=== PATIENT | male | born 1985 | race Caucasian/White ===

== ENCOUNTER 2017-05-14 13:48 | Day surgery (SDC) | payer OTHER ==
[2017-05-14] MEDS ORDERED: PROPOFOL 20 ML (15:20)
== END 2017-05-14 17:54 | disposition home or self-care (01) ==
LOC: GIL 13:48
DX: K20.8 Other esophagitis (principal); K29.60 Other gastritis without bleeding; I10 Essential (primary) hypertension; I25.2 Old myocardial infarction; Z86.73 Personal history of transient ischemic attack (TIA), and cerebral infarction without residual deficits; F17.200 Nicotine dependence, unspecified, uncomplicated; E11.9 Type 2 diabetes mellitus without complications
CPT/HCPCS: 43239; 82962; 88305; 88312; 88313

== ENCOUNTER 2018-01-18 19:31 | Inpatient (IN) | payer OTHER ==
[2018-01-18] MEDS ORDERED: ACETAMINOPHEN 325 MG TAB PO (21:30)
[2018-01-18] MEDS ORDERED: CEFEPIME 1GM/50 ML (PMX) 50 ML IVPB (21:30)
[2018-01-18] MEDS ORDERED: VANCOMYCIN IV PER PHARMACY XX (21:30)
[2018-01-18] MEDS: ATORVASTATIN 80 MG TAB PO (22:41)
[2018-01-18] MEDS: morphine 2 MG INJ IV (22:41)
[2018-01-18] MEDS: FLUOXETINE 20 MG CAP PO (22:42)
[2018-01-18] MEDS: INSULIN GLARGINE [LANTus] (100 UNITS/ML) SYG SC (22:44)
[2018-01-18] MEDS ORDERED: GLUCAGON 1 MG INJ IM (23:00)
[2018-01-18] MEDS ORDERED: GLUCOSE GEL 15 GRAM TUBE PO ×2 (23:00)
[2018-01-18] MEDS ORDERED: GLUCOSE GEL 15 GRAM TUBE BUCCAL (23:00)
[2018-01-18] MEDS ORDERED: DEXTROSE 50% 50 ML SYRINGE IV (23:00)
[2018-01-18] MEDS: AZTREONAM 1 GM/NS (PMX) 50 ML IVPB (23:07)
[2018-01-18] MEDS: GABAPENTIN 300 MG CAP PO (23:07)
[2018-01-18] MEDS: DIVALPROEX (ER) 500 MG TAB PO (23:07)
[2018-01-19] MEDS: ACCU-CHEK XX ×2 (01:48→20:35)
[2018-01-19 05:23] LABS: ADD MAN DIFF? NO
[2018-01-19 05:25] LABS: BASOPHIL # 0.1 10^3/ul (0.0-0.1); BASOPHILS % 0.5 % (0.0-2.0); EOSINOPHILS # 0.3 10^3/ul (0.0-0.5); EOSINOPHILS % 2.5 % (0.0-7.0); HEMATOCRIT 38.7 % (42.0-52.0); HEMOGLOBIN 13.2 g/dl (14.0-18.0); LYMPHOCYTES % 26.9 % (15.0-51.0); MEAN CORPUSCULAR HEMOGLOBIN 31.1 pg (29.0-33.0); MEAN CORPUSCULAR HGB CONC 34.1 g/dl (32.0-37.0); MEAN CORPUSCULAR VOLUME 91.3 fl (82.0-101.0); MEAN PLATELET VOLUME 9.5 fl (7.4-10.4); MONOCYTE # 0.9 10^3/ul (0.3-0.9); MONOCYTES % 8.1 % (0.0-11.0); NEUTROPHIL # 6.8 10^3/ul (1.6-7.5); NEUTROPHILS % 61.6 % (39.0-77.0); PLATELET COUNT 309 10^3/UL (140-415); RED BLOOD COUNT 4.24 10^6/ul (4.70-6.10); RED CELL DISTRIBUTION WIDTH 11.9 % (11.5-14.5)
[2018-01-19 05:52] LABS: ANION GAP 9 (5-13); BLOOD UREA NITROGEN 14 mg/dl (7-20); CALCIUM 8.7 mg/dl (8.4-10.2); CARBON DIOXIDE 30 mmol/L (21-31); CHLORIDE 103 mmol/L (97-110); Estimated GFR > 60 mL/min (>60); GLUCOSE 56 mg/dl (70-220); POTASSIUM 4.2 mmol/L (3.5-5.1); SODIUM 142 mmol/L (135-144)
[2018-01-19] MEDS: AZTREONAM 1 GM/NS (PMX) 50 ML IVPB ×3 (05:54→22:30)
[2018-01-19] MEDS: PANTOPRAZOLE 40 MG INJ IV (05:54)
[2018-01-19] MEDS: INSULIN ASPART [NOVOLOG] 3 ML PEN SC ×4 (07:59→20:31)
[2018-01-19] MEDS: VANCOMYCIN 1 GM 250 ML IVPB ×3 (08:05→15:56)
[2018-01-19] MEDS: INSULIN GLARGINE [LANTus] (100 UNITS/ML) SYG SC ×2 (08:10→20:33)
[2018-01-19] MEDS: morphine 2 MG INJ IV ×4 (08:12→22:47)
[2018-01-19] MEDS: FLUOXETINE 20 MG CAP PO ×2 (08:50→20:35)
[2018-01-19] MEDS: ASPIRIN (EC) 81 MG TAB PO (08:51)
[2018-01-19] MEDS: NICOTINE (14 MG/24 HR) PATCH TRANSDERM (08:51)
[2018-01-19] MEDS: GABAPENTIN 300 MG CAP PO ×3 (08:51→20:34)
[2018-01-19] MEDS: LISINOPRIL 5 MG TAB PO (08:51)
[2018-01-19] MEDS: COLLAGENASE 5 GM (UD JAR) TOP (12:01)
[2018-01-19] MEDS: ATORVASTATIN 80 MG TAB PO (20:33)
[2018-01-19] MEDS: DIVALPROEX (ER) 500 MG TAB PO (20:33)
[2018-01-19 23:46] LABS: VANCOMYCIN,TROUGH 9.8 ug/ml (10.0-20.0)
[2018-01-20] MEDS: VANCOMYCIN 1.25 GM in SOD CHLORIDE 0.9% 250 ML IVPB ×3 (00:45→16:11)
[2018-01-20] MEDS: HYDROCODONE/APAP (7.5/325) TAB PO (02:09)
[2018-01-20] MEDS: morphine 2 MG INJ IV ×5 (04:17→20:45)
[2018-01-20] MEDS: PANTOPRAZOLE 40 MG INJ IV (05:04)
[2018-01-20] MEDS: AZTREONAM 1 GM/NS (PMX) 50 ML IVPB ×3 (05:04→20:45)
[2018-01-20 06:03] LABS: ADD MAN DIFF? NO
[2018-01-20 06:07] LABS: BASOPHIL # 0.1 10^3/ul (0.0-0.1); BASOPHILS % 0.5 % (0.0-2.0); EOSINOPHILS # 0.3 10^3/ul (0.0-0.5); EOSINOPHILS % 2.9 % (0.0-7.0); HEMATOCRIT 39.6 % (42.0-52.0); HEMOGLOBIN 13.5 g/dl (14.0-18.0); LYMPHOCYTES # 2.8 10^3/ul (0.8-2.9); LYMPHOCYTES % 29.6 % (15.0-51.0); MEAN CORPUSCULAR HEMOGLOBIN 30.9 pg (29.0-33.0); MEAN CORPUSCULAR HGB CONC 34.1 g/dl (32.0-37.0); MEAN CORPUSCULAR VOLUME 90.6 fl (82.0-101.0); MEAN PLATELET VOLUME 9.7 fl (7.4-10.4); MONOCYTE # 0.7 10^3/ul (0.3-0.9); MONOCYTES % 7.7 % (0.0-11.0); NEUTROPHIL # 5.5 10^3/ul (1.6-7.5); PLATELET COUNT 331 10^3/UL (140-415); RED BLOOD COUNT 4.37 10^6/ul (4.70-6.10); RED CELL DISTRIBUTION WIDTH 11.9 % (11.5-14.5)
[2018-01-20 06:07] LABS: WHITE BLOOD COUNT 9.3 10^3/ul (4.8-10.8)
[2018-01-20 06:53] LABS: ANION GAP 10 (5-13); BLOOD UREA NITROGEN 13 mg/dl (7-20); CALCIUM 9.4 mg/dl (8.4-10.2); CARBON DIOXIDE 32 mmol/L (21-31); CHLORIDE 100 mmol/L (97-110); CREATININE 0.55 mg/dl (0.61-1.24); Estimated GFR > 60 mL/min (>60); GLUCOSE 79 mg/dl (70-220); POTASSIUM 3.9 mmol/L (3.5-5.1); SODIUM 142 mmol/L (135-144)
[2018-01-20 07:07] LABS: MAGNESIUM 1.9 mg/dl (1.7-2.5)
[2018-01-20 07:07] LABS: PHOSPHORUS 5.4 mg/dl (2.5-4.9)
[2018-01-20] MEDS: INSULIN ASPART [NOVOLOG] 3 ML PEN SC ×4 (08:00→20:39)
[2018-01-20] MEDS: INSULIN GLARGINE [LANTus] (100 UNITS/ML) SYG SC ×2 (08:19→20:00)
[2018-01-20] MEDS: FLUOXETINE 20 MG CAP PO ×2 (08:26→20:39)
[2018-01-20] MEDS: GABAPENTIN 300 MG CAP PO ×3 (08:26→20:39)
[2018-01-20] MEDS: ASPIRIN (EC) 81 MG TAB PO (08:26)
[2018-01-20] MEDS: NICOTINE (14 MG/24 HR) PATCH TRANSDERM (08:27)
[2018-01-20] MEDS: LISINOPRIL 5 MG TAB PO (09:16)
[2018-01-20] MEDS: COLLAGENASE 5 GM (UD JAR) TOP (09:17)
[2018-01-20] MEDS: DEXTROSE 50% 50 ML SYRINGE IV ×3 (12:31→17:15)
[2018-01-20] MEDS: DEXTROSE 5%-0.45% NACL 1,000 ML IV (13:36)
[2018-01-20] MEDS: DEXTROSE 10% 1,000 ML IV (16:11)
[2018-01-20] MEDS: DIVALPROEX (ER) 500 MG TAB PO (20:39)
[2018-01-20] MEDS: ATORVASTATIN 80 MG TAB PO (20:39)
[2018-01-21] MEDS: VANCOMYCIN 1.25 GM in SOD CHLORIDE 0.9% 250 ML IVPB ×3 (00:20→17:50)
[2018-01-21] MEDS: morphine 2 MG INJ IV ×5 (01:52→19:44)
[2018-01-21] MEDS: ACCU-CHEK XX (02:00)
[2018-01-21] MEDS: PANTOPRAZOLE 40 MG INJ IV (05:58)
[2018-01-21] MEDS: AZTREONAM 1 GM/NS (PMX) 50 ML IVPB ×3 (05:58→21:35)
[2018-01-21 08:11] LABS: ADD MAN DIFF? NO
[2018-01-21 08:20] LABS: BASOPHILS % 0.5 % (0.0-2.0); EOSINOPHILS # 0.3 10^3/ul (0.0-0.5); EOSINOPHILS % 3.8 % (0.0-7.0); HEMATOCRIT 38.7 % (42.0-52.0); HEMOGLOBIN 12.9 g/dl (14.0-18.0); LYMPHOCYTES # 2.6 10^3/ul (0.8-2.9); LYMPHOCYTES % 34.3 % (15.0-51.0); MEAN CORPUSCULAR HEMOGLOBIN 30.5 pg (29.0-33.0); MEAN CORPUSCULAR HGB CONC 33.3 g/dl (32.0-37.0); MEAN CORPUSCULAR VOLUME 91.5 fl (82.0-101.0); MEAN PLATELET VOLUME 9.7 fl (7.4-10.4); MONOCYTE # 0.6 10^3/ul (0.3-0.9); MONOCYTES % 8.2 % (0.0-11.0); NEUTROPHILS % 52.5 % (39.0-77.0); PLATELET COUNT 314 10^3/UL (140-415); RED BLOOD COUNT 4.23 10^6/ul (4.70-6.10); RED CELL DISTRIBUTION WIDTH 11.9 % (11.5-14.5)
[2018-01-21 08:20] LABS: WHITE BLOOD COUNT 7.7 10^3/ul (4.8-10.8)
[2018-01-21] MEDS: ASPIRIN (EC) 81 MG TAB PO (08:34)
[2018-01-21] MEDS: GABAPENTIN 300 MG CAP PO ×3 (08:34→20:21)
[2018-01-21] MEDS: FLUOXETINE 20 MG CAP PO ×2 (08:36→20:20)
[2018-01-21] MEDS: LISINOPRIL 5 MG TAB PO (08:36)
[2018-01-21] MEDS: COLLAGENASE 5 GM (UD JAR) TOP (08:37)
[2018-01-21 08:42] LABS: ANION GAP 12 (5-13); BLOOD UREA NITROGEN 14 mg/dl (7-20); CALCIUM 9.1 mg/dl (8.4-10.2); CARBON DIOXIDE 29 mmol/L (21-31); CHLORIDE 100 mmol/L (97-110); CREATININE 0.54 mg/dl (0.61-1.24); Estimated GFR > 60 mL/min (>60); GLUCOSE 159 mg/dl (70-220); POTASSIUM 4.4 mmol/L (3.5-5.1); SODIUM 141 mmol/L (135-144)
[2018-01-21 08:48] LABS: MAGNESIUM 1.9 mg/dl (1.7-2.5)
[2018-01-21 08:54] LABS: VANCOMYCIN,TROUGH 13.4 ug/ml (10.0-20.0)
[2018-01-21] MEDS: INSULIN GLARGINE [LANTus] (100 UNITS/ML) SYG SC ×2 (09:28→20:22)
[2018-01-21] MEDS: INSULIN ASPART [NOVOLOG] 3 ML PEN SC ×4 (09:28→21:00)
[2018-01-21] MEDS: NICOTINE (14 MG/24 HR) PATCH TRANSDERM (09:29)
[2018-01-21] MEDS: DEXTROSE 10% 1,000 ML IV (12:30)
[2018-01-21] MEDS: DIVALPROEX (ER) 500 MG TAB PO (20:20)
[2018-01-21] MEDS: ATORVASTATIN 80 MG TAB PO (20:20)
[2018-01-22] MEDS: VANCOMYCIN 1.25 GM in SOD CHLORIDE 0.9% 250 ML IVPB ×3 (01:56→18:55)
[2018-01-22] MEDS: ACCU-CHEK XX (01:57)
[2018-01-22] MEDS: morphine 2 MG INJ IV ×4 (04:41→18:44)
[2018-01-22] MEDS: AZTREONAM 1 GM/NS (PMX) 50 ML IVPB ×3 (05:35→22:00)
[2018-01-22] MEDS: PANTOPRAZOLE 40 MG INJ IV (05:35)
[2018-01-22] MEDS: INSULIN ASPART [NOVOLOG] 3 ML PEN SC ×5 (07:54→20:22)
[2018-01-22] MEDS: FLUOXETINE 20 MG CAP PO ×2 (08:07→20:42)
[2018-01-22] MEDS: LISINOPRIL 5 MG TAB PO (08:08)
[2018-01-22] MEDS: GABAPENTIN 300 MG CAP PO ×3 (08:08→20:23)
[2018-01-22] MEDS: ASPIRIN (EC) 81 MG TAB PO (08:08)
[2018-01-22] MEDS: COLLAGENASE 5 GM (UD JAR) TOP (08:08)
[2018-01-22] MEDS: INSULIN GLARGINE [LANTus] (100 UNITS/ML) SYG SC ×2 (08:12→20:32)
[2018-01-22] MEDS: NICOTINE (14 MG/24 HR) PATCH TRANSDERM (10:37)
[2018-01-22] MEDS: ATORVASTATIN 80 MG TAB PO (20:23)
[2018-01-22] MEDS: DIVALPROEX (ER) 500 MG TAB PO (20:43)
[2018-01-22] MEDS: HYDROCODONE/APAP (7.5/325) TAB PO (21:33)
[2018-01-23] MEDS: morphine 2 MG INJ IV ×6 (00:01→23:57)
[2018-01-23] MEDS: HYDROCODONE/APAP (7.5/325) TAB PO ×3 (01:55→17:34)
[2018-01-23] MEDS: VANCOMYCIN 1.25 GM in SOD CHLORIDE 0.9% 250 ML IVPB ×3 (01:55→18:16)
[2018-01-23] MEDS: ACCU-CHEK XX (02:00)
[2018-01-23 05:37] LABS: ADD MAN DIFF? NO
[2018-01-23 05:41] LABS: WHITE BLOOD COUNT 7.5 10^3/ul (4.8-10.8)
[2018-01-23 05:41] LABS: BASOPHIL # 0.1 10^3/ul (0.0-0.1); BASOPHILS % 0.7 % (0.0-2.0); EOSINOPHILS # 0.3 10^3/ul (0.0-0.5); EOSINOPHILS % 3.4 % (0.0-7.0); HEMOGLOBIN 11.9 g/dl (14.0-18.0); LYMPHOCYTES # 3.1 10^3/ul (0.8-2.9); LYMPHOCYTES % 41.2 % (15.0-51.0); MEAN CORPUSCULAR HEMOGLOBIN 30.7 pg (29.0-33.0); MEAN CORPUSCULAR VOLUME 90.2 fl (82.0-101.0); MEAN PLATELET VOLUME 9.6 fl (7.4-10.4); MONOCYTE # 0.7 10^3/ul (0.3-0.9); NEUTROPHIL # 3.4 10^3/ul (1.6-7.5); PLATELET COUNT 300 10^3/UL (140-415); RED BLOOD COUNT 3.88 10^6/ul (4.70-6.10); RED CELL DISTRIBUTION WIDTH 11.8 % (11.5-14.5)
[2018-01-23 06:00] LABS: ANION GAP 8 (5-13); BLOOD UREA NITROGEN 19 mg/dl (7-20); CALCIUM 9.2 mg/dl (8.4-10.2); CARBON DIOXIDE 33 mmol/L (21-31); CHLORIDE 100 mmol/L (97-110); CREATININE 0.56 mg/dl (0.61-1.24); Estimated GFR > 60 mL/min (>60); GLUCOSE 57 mg/dl (70-220); POTASSIUM 3.8 mmol/L (3.5-5.1); SODIUM 141 mmol/L (135-144)
[2018-01-23 06:00] LABS: HEMOGLOBIN A1C 9.5 % (0-5.9)
[2018-01-23] MEDS: PANTOPRAZOLE 40 MG INJ IV (06:33)
[2018-01-23] MEDS: AZTREONAM 1 GM/NS (PMX) 50 ML IVPB ×4 (06:39→21:56)
[2018-01-23] MEDS: INSULIN ASPART [NOVOLOG] 3 ML PEN SC ×4 (08:00→20:34)
[2018-01-23] MEDS: INSULIN GLARGINE [LANTus] (100 UNITS/ML) SYG SC ×2 (08:00→19:51)
[2018-01-23] MEDS: ASPIRIN (EC) 81 MG TAB PO (08:38)
[2018-01-23] MEDS: FLUOXETINE 20 MG CAP PO ×2 (08:38→20:32)
[2018-01-23] MEDS: GABAPENTIN 300 MG CAP PO ×3 (08:38→20:32)
[2018-01-23] MEDS: COLLAGENASE 5 GM (UD JAR) TOP (08:39)
[2018-01-23] MEDS: NICOTINE (14 MG/24 HR) PATCH TRANSDERM (09:52)
[2018-01-23] MEDS: LISINOPRIL 5 MG TAB PO (09:57)
[2018-01-23] MEDS: DIVALPROEX (ER) 500 MG TAB PO (20:32)
[2018-01-23] MEDS: ATORVASTATIN 80 MG TAB PO (20:32)
[2018-01-23] MEDS: DEXTROSE 5%-0.45% NACL 1,000 ML IV (23:54)
[2018-01-24] MEDS: INSULIN ASPART [NOVOLOG] 3 ML PEN SC ×6 (01:06→20:30)
[2018-01-24] MEDS: ACCU-CHEK XX (01:12)
[2018-01-24] MEDS: VANCOMYCIN 1.25 GM in SOD CHLORIDE 0.9% 250 ML IVPB ×4 (01:23→20:09)
[2018-01-24] MEDS: morphine 2 MG INJ IV ×3 (04:44→14:59)
[2018-01-24] MEDS: PANTOPRAZOLE 40 MG INJ IV (05:28)
[2018-01-24] MEDS: AZTREONAM 1 GM/NS (PMX) 50 ML IVPB ×3 (05:28→23:43)
[2018-01-24 06:32] LABS: CREATININE 0.54 mg/dl (0.61-1.24)
[2018-01-24 06:32] LABS: BLOOD UREA NITROGEN 18 mg/dl (7-20)
[2018-01-24] MEDS: INSULIN GLARGINE [LANTus] (100 UNITS/ML) SYG SC ×3 (08:00→20:34)
[2018-01-24] MEDS: ASPIRIN (EC) 81 MG TAB PO (09:00)
[2018-01-24] MEDS: GABAPENTIN 300 MG CAP PO ×3 (09:00→20:26)
[2018-01-24] MEDS: COLLAGENASE 5 GM (UD JAR) TOP ×2 (09:00→15:49)
[2018-01-24] MEDS: LISINOPRIL 5 MG TAB PO (09:00)
[2018-01-24] MEDS: FLUOXETINE 20 MG CAP PO ×2 (09:00→20:26)
[2018-01-24] MEDS: NICOTINE (14 MG/24 HR) PATCH TRANSDERM (09:09)
[2018-01-24 09:42] LABS: VANCOMYCIN,TROUGH 16.6 ug/ml (10.0-20.0)
[2018-01-24] MEDS: ONDANSETRON 4 MG INJ IV (15:02)
[2018-01-24] MEDS ORDERED: ONDANSETRON 4 MG INJ (17:48)
[2018-01-24] MEDS ORDERED: FENTAnyl 50 MCG/ML VIAL (17:48)
[2018-01-24] MEDS ORDERED: ROPIVACAINE 0.2% 20 ML VIAL (17:48)
[2018-01-24] MEDS ORDERED: METOCLOPRAMIDE 10 MG INJ (17:48)
[2018-01-24] MEDS ORDERED: PROPOFOL 20 ML (17:48)
[2018-01-24] MEDS ORDERED: MIDAZOLAM 1 MG/ML 2 ML INJ (17:48)
[2018-01-24] MEDS ORDERED: EPHEDrine SULFATE 50 MG/5 ML SYG (18:07)
[2018-01-24] MEDS: DIVALPROEX (ER) 500 MG TAB PO (20:25)
[2018-01-24] MEDS: ATORVASTATIN 80 MG TAB PO (20:26)
[2018-01-24 21:35] LABS: ADD MAN DIFF? NO
[2018-01-24 21:38] LABS: WHITE BLOOD COUNT 7.6 10^3/ul (4.8-10.8)
[2018-01-24 21:38] LABS: BASOPHIL # 0.1 10^3/ul (0.0-0.1); BASOPHILS % 1.1 % (0.0-2.0); EOSINOPHILS # 0.2 10^3/ul (0.0-0.5); HEMATOCRIT 35.9 % (42.0-52.0); HEMOGLOBIN 12.2 g/dl (14.0-18.0); LYMPHOCYTES # 2.7 10^3/ul (0.8-2.9); LYMPHOCYTES % 34.9 % (15.0-51.0); MEAN CORPUSCULAR HEMOGLOBIN 31.1 pg (29.0-33.0); MEAN CORPUSCULAR VOLUME 91.6 fl (82.0-101.0); MONOCYTE # 0.5 10^3/ul (0.3-0.9); MONOCYTES % 6.2 % (0.0-11.0); NEUTROPHIL # 4.1 10^3/ul (1.6-7.5); NEUTROPHILS % 54.3 % (39.0-77.0); PLATELET COUNT 259 10^3/UL (140-415); RED BLOOD COUNT 3.92 10^6/ul (4.70-6.10)
[2018-01-25] MEDS: VANCOMYCIN 1.25 GM in SOD CHLORIDE 0.9% 250 ML IVPB ×3 (01:59→17:30)
[2018-01-25] MEDS: ACCU-CHEK XX (02:00)
[2018-01-25] MEDS: morphine 2 MG INJ IV ×5 (02:26→21:02)
[2018-01-25] MEDS: AZTREONAM 1 GM/NS (PMX) 50 ML IVPB ×3 (05:51→23:12)
[2018-01-25] MEDS: PANTOPRAZOLE 40 MG INJ IV (05:55)
[2018-01-25] MEDS ORDERED: INSULIN ASPART [NOVOLOG] 3 ML PEN SC (07:00)
[2018-01-25] MEDS: FLUOXETINE 20 MG CAP PO ×2 (08:23→20:55)
[2018-01-25] MEDS: GABAPENTIN 300 MG CAP PO ×3 (08:23→20:55)
[2018-01-25] MEDS: ASPIRIN (EC) 81 MG TAB PO (08:23)
[2018-01-25] MEDS: LISINOPRIL 5 MG TAB PO (08:23)
[2018-01-25] MEDS: NICOTINE (14 MG/24 HR) PATCH TRANSDERM (08:26)
[2018-01-25] MEDS: Insulin NOVOLOG SS MILD Algorithm (SS with meals and bedtime) SC ×4 (08:26→21:05)
[2018-01-25] MEDS: COLLAGENASE 5 GM (UD JAR) TOP (09:00)
[2018-01-25] MEDS: ENOXAPARIN 40 MG/0.4 ML SYG SC (16:51)
[2018-01-25] MEDS: ATORVASTATIN 80 MG TAB PO (20:55)
[2018-01-25] MEDS: DIVALPROEX (ER) 500 MG TAB PO (20:56)
[2018-01-25] MEDS: INSULIN GLARGINE [LANTus] (100 UNITS/ML) SYG SC (21:22)
[2018-01-26] MEDS: morphine 2 MG INJ IV ×6 (01:31→21:32)
[2018-01-26] MEDS: VANCOMYCIN 1.25 GM in SOD CHLORIDE 0.9% 250 ML IVPB ×2 (01:34→11:49)
[2018-01-26] MEDS: ACCU-CHEK XX (01:46)
[2018-01-26] MEDS: AZTREONAM 1 GM/NS (PMX) 50 ML IVPB ×3 (05:15→21:31)
[2018-01-26] MEDS: PANTOPRAZOLE (EC) 40 MG TAB PO (05:15)
[2018-01-26] MEDS: NICOTINE (14 MG/24 HR) PATCH TRANSDERM (08:07)
[2018-01-26] MEDS: FLUOXETINE 20 MG CAP PO ×2 (08:07→20:32)
[2018-01-26] MEDS: ASPIRIN (EC) 81 MG TAB PO (08:08)
[2018-01-26] MEDS: LISINOPRIL 5 MG TAB PO (08:08)
[2018-01-26] MEDS: GABAPENTIN 300 MG CAP PO ×3 (08:08→20:32)
[2018-01-26] MEDS: INSULIN GLARGINE [LANTus] (100 UNITS/ML) SYG SC ×2 (08:15→20:34)
[2018-01-26] MEDS: ENOXAPARIN 40 MG/0.4 ML SYG SC (08:15)
[2018-01-26] MEDS: Insulin NOVOLOG SS MILD Algorithm (SS with meals and bedtime) SC ×4 (08:22→20:32)
[2018-01-26 08:43] LABS: ADD MAN DIFF? NO
[2018-01-26 08:47] LABS: BASOPHIL # 0.1 10^3/ul (0.0-0.1); BASOPHILS % 1.4 % (0.0-2.0); EOSINOPHILS # 0.2 10^3/ul (0.0-0.5); HEMATOCRIT 35.8 % (42.0-52.0); HEMOGLOBIN 12.3 g/dl (14.0-18.0); LYMPHOCYTES # 2.6 10^3/ul (0.8-2.9); LYMPHOCYTES % 39.9 % (15.0-51.0); MEAN CORPUSCULAR HEMOGLOBIN 31.2 pg (29.0-33.0); MEAN CORPUSCULAR HGB CONC 34.4 g/dl (32.0-37.0); MEAN CORPUSCULAR VOLUME 90.9 fl (82.0-101.0); MEAN PLATELET VOLUME 9.6 fl (7.4-10.4); MONOCYTE # 0.6 10^3/ul (0.3-0.9); MONOCYTES % 9.1 % (0.0-11.0); NEUTROPHIL # 3.1 10^3/ul (1.6-7.5); NEUTROPHILS % 46.3 % (39.0-77.0); PLATELET COUNT 300 10^3/UL (140-415); RED BLOOD COUNT 3.94 10^6/ul (4.70-6.10); RED CELL DISTRIBUTION WIDTH 11.9 % (11.5-14.5)
[2018-01-26 08:47] LABS: WHITE BLOOD COUNT 6.6 10^3/ul (4.8-10.8)
[2018-01-26 09:06] LABS: PHOSPHORUS 4.4 mg/dl (2.5-4.9)
[2018-01-26 09:06] LABS: ANION GAP 10 (5-13); BLOOD UREA NITROGEN 20 mg/dl (7-20); CARBON DIOXIDE 28 mmol/L (21-31); CHLORIDE 104 mmol/L (97-110); CREATININE 0.58 mg/dl (0.61-1.24); Estimated GFR > 60 mL/min (>60); GLUCOSE 69 mg/dl (70-220); MAGNESIUM 1.7 mg/dl (1.7-2.5); POTASSIUM 3.9 mmol/L (3.5-5.1); SODIUM 142 mmol/L (135-144)
[2018-01-26] MEDS: COLLAGENASE 5 GM (UD JAR) TOP (12:11)
[2018-01-26] MEDS: VANCOMYCIN 1 GM 250 ML IVPB (18:34)
[2018-01-26] MEDS: DIVALPROEX (ER) 500 MG TAB PO (20:32)
[2018-01-26] MEDS: ATORVASTATIN 80 MG TAB PO (20:32)
[2018-01-27] MEDS: morphine 2 MG INJ IV ×5 (01:37→20:09)
[2018-01-27] MEDS: VANCOMYCIN 1 GM 250 ML IVPB ×3 (01:39→17:30)
[2018-01-27] MEDS: ACCU-CHEK XX (02:00)
[2018-01-27] MEDS: AZTREONAM 1 GM/NS (PMX) 50 ML IVPB (05:37)
[2018-01-27] MEDS: PANTOPRAZOLE (EC) 40 MG TAB PO (05:42)
[2018-01-27] MEDS: Insulin NOVOLOG SS MILD Algorithm (SS with meals and bedtime) SC ×4 (07:00→21:00)
[2018-01-27] MEDS: HYDROCODONE/APAP (7.5/325) TAB PO (07:35)
[2018-01-27] MEDS: INSULIN GLARGINE [LANTus] (100 UNITS/ML) SYG SC ×3 (08:00→21:25)
[2018-01-27] MEDS: ENOXAPARIN 40 MG/0.4 ML SYG SC (08:20)
[2018-01-27] MEDS: GABAPENTIN 300 MG CAP PO ×3 (08:20→21:20)
[2018-01-27] MEDS: LISINOPRIL 5 MG TAB PO (08:20)
[2018-01-27] MEDS: ASPIRIN (EC) 81 MG TAB PO (08:21)
[2018-01-27] MEDS: COLLAGENASE 5 GM (UD JAR) TOP (08:22)
[2018-01-27] MEDS: NICOTINE (14 MG/24 HR) PATCH TRANSDERM (08:22)
[2018-01-27] MEDS: FLUOXETINE 20 MG CAP PO ×2 (08:23→21:20)
[2018-01-27] MEDS: DIVALPROEX (ER) 500 MG TAB PO (21:19)
[2018-01-27] MEDS: ATORVASTATIN 80 MG TAB PO (21:20)
[2018-01-28] MEDS: morphine 2 MG INJ IV ×5 (00:34→18:27)
[2018-01-28] MEDS: ACCU-CHEK XX (02:00)
[2018-01-28] MEDS: VANCOMYCIN 1 GM 250 ML IVPB ×3 (02:20→17:45)
[2018-01-28] MEDS: PANTOPRAZOLE (EC) 40 MG TAB PO (04:48)
[2018-01-28 06:31] LABS: BLOOD UREA NITROGEN 22 mg/dl (7-20)
[2018-01-28 06:31] LABS: CREATININE 0.68 mg/dl (0.61-1.24)
[2018-01-28] MEDS: Insulin NOVOLOG SS MILD Algorithm (SS with meals and bedtime) SC ×4 (07:00→21:51)
[2018-01-28] MEDS: INSULIN GLARGINE [LANTus] (100 UNITS/ML) SYG SC (08:00)
[2018-01-28] MEDS: ASPIRIN (EC) 81 MG TAB PO (08:23)
[2018-01-28] MEDS: GABAPENTIN 300 MG CAP PO ×3 (08:23→21:41)
[2018-01-28] MEDS: LISINOPRIL 5 MG TAB PO (08:24)
[2018-01-28] MEDS: FLUOXETINE 20 MG CAP PO ×2 (08:24→21:41)
[2018-01-28] MEDS: ENOXAPARIN 40 MG/0.4 ML SYG SC (08:25)
[2018-01-28] MEDS: NICOTINE (14 MG/24 HR) PATCH TRANSDERM (08:25)
[2018-01-28] MEDS: INSULIN ASPART [NOVOLOG] 3 ML PEN SC ×2 (13:04→17:42)
[2018-01-28 15:15] LABS: RAPID PLASMA REAGIN NONREACTIVE (NR)
[2018-01-28 15:17] LABS: HEPATITIS B SURFACE ANTIGEN NEGATIVE (NEGATIVE)
[2018-01-28 15:34] LABS: HEPATITIS C VIRAL ANTIBODY NEGATIVE (NEGATIVE)
[2018-01-28 15:35] LABS: HEPATITIS B SURFACE ANTIBODY POSITIVE (NEGATIVE)
[2018-01-28] MEDS: DIVALPROEX (ER) 500 MG TAB PO (21:40)
[2018-01-28] MEDS: ATORVASTATIN 80 MG TAB PO (21:41)
== END 2018-01-28 22:55 | disposition home or self-care (01) | DRG 629 ==
LOC: 2NE 01-22 17:56 → PP2 19:31 → TEL 01-20 18:20
PROVIDERS: Internal Medicine
PROC: 0QBP0ZX Excision of Left Metatarsal, Open Approach, Diagnostic (ICD-10-PCS; principal; 2018-01-24 17:47)
PROC: 0QBP0ZZ Excision of Left Metatarsal, Open Approach (ICD-10-PCS; 2018-01-24 17:47)
DX: E11.69 Type 2 diabetes mellitus with other specified complication (principal); L03.116 Cellulitis of left lower limb; M86.8X7 Other osteomyelitis, ankle and foot; Q21.1 Atrial septal defect; L02.612 Cutaneous abscess of left foot; E11.42 Type 2 diabetes mellitus with diabetic polyneuropathy; Z91.14 Patient's other noncompliance with medication regimen; I10 Essential (primary) hypertension; Z59.0 Homelessness; F17.200 Nicotine dependence, unspecified, uncomplicated; F15.90 Other stimulant use, unspecified, uncomplicated; F32.9 Major depressive disorder, single episode, unspecified; M79.89 Other specified soft tissue disorders; Z86.73 Personal history of transient ischemic attack (TIA), and cerebral infarction without residual deficits; B95.62 Methicillin resistant Staphylococcus aureus infection as the cause of diseases classified elsewhere; Z89.422 Acquired absence of other left toe(s)
CPT/HCPCS: 73120; 80048; 80202; 82565; 82962; 83036; 83735; 84100; 84443; 84520; 85025; 86592; 86706; 86803; 87070; 87075; 87081; 87102; 87340; 97161

== ENCOUNTER 2018-02-11 21:12 | Inpatient (IN) | payer OTHER ==
[2018-02-11] MEDS ORDERED: ACETAMINOPHEN 325 MG TAB PO (23:00)
[2018-02-11] MEDS ORDERED: ASPIRIN 81 MG TAB PO (23:00)
[2018-02-11] MEDS: INSULIN ASPART [NOVOLOG] 3 ML PEN SC (23:00)
[2018-02-11] MEDS: FLUOXETINE 20 MG CAP PO (23:00)
[2018-02-11] MEDS ORDERED: DEXTROSE 50% 50 ML SYRINGE IV ×2 (23:04)
[2018-02-11] MEDS ORDERED: GLUCAGON 1 MG INJ IM (23:04)
[2018-02-11] MEDS ORDERED: GLUCOSE GEL 15 GRAM TUBE BUCCAL (23:04)
[2018-02-11] MEDS ORDERED: GLUCOSE GEL 15 GRAM TUBE PO ×2 (23:04)
[2018-02-12] MEDS: SOD CHLORIDE 0.9% 1,000 ML IV ×2 (00:10→16:32)
[2018-02-12] MEDS: ACCU-CHEK XX (02:00)
[2018-02-12 07:04] LABS: ADD MAN DIFF? NO
[2018-02-12 07:17] LABS: ABNORMAL IP MESSAGE 1; BASOPHILS % 0.4 % (0.0-2.0); EOSINOPHILS # 0.1 10^3/ul (0.0-0.5); EOSINOPHILS % 1.4 % (0.0-7.0); HEMATOCRIT 34.3 % (42.0-52.0); HEMOGLOBIN 11.5 g/dl (14.0-18.0); LYMPHOCYTES # 1.4 10^3/ul (0.8-2.9); LYMPHOCYTES % 24.2 % (15.0-51.0); MEAN CORPUSCULAR HEMOGLOBIN 30.7 pg (29.0-33.0); MEAN CORPUSCULAR HGB CONC 33.5 g/dl (32.0-37.0); MEAN CORPUSCULAR VOLUME 91.7 fl (82.0-101.0); MONOCYTE # 0.4 10^3/ul (0.3-0.9); MONOCYTES % 6.8 % (0.0-11.0); NEUTROPHIL # 3.7 10^3/ul (1.6-7.5); NEUTROPHILS % 66.8 % (39.0-77.0); PLATELET COUNT 96 10^3/UL (140-415); POSITIVE DIFF @See below; RED BLOOD COUNT 3.74 10^6/ul (4.70-6.10); RED CELL DISTRIBUTION WIDTH 13.1 % (11.5-14.5)
[2018-02-12 07:17] LABS: WHITE BLOOD COUNT 5.6 10^3/ul (4.8-10.8)
[2018-02-12 07:48] LABS: ALANINE AMINOTRANSFERASE 36 IU/L (13-69); ALBUMIN 3.2 g/dl (3.3-4.9); ALKALINE PHOSPHATASE 123 IU/L (42-121); ANION GAP 11 (5-13); ASPARTATE AMINO TRANSFERASE 59 IU/L (15-46); BILIRUBIN,INDIRECT 0.5 mg/dl (0-1.1); BILIRUBIN,TOTAL 0.5 mg/dl (0.2-1.3); BLOOD UREA NITROGEN 12 mg/dl (7-20); CARBON DIOXIDE 26 mmol/L (21-31); CHLORIDE 99 mmol/L (97-110); CREATININE 0.57 mg/dl (0.61-1.24); Estimated GFR > 60 mL/min (>60); POTASSIUM 4.7 mmol/L (3.5-5.1); SODIUM 136 mmol/L (135-144); TOTAL PROTEIN 6.4 g/dl (6.1-8.1)
[2018-02-12 07:50] LABS: GLUCOSE 503 mg/dl (70-220)
[2018-02-12] MEDS: ASPIRIN 81 MG TAB PO (08:36)
[2018-02-12] MEDS: GABAPENTIN 300 MG CAP PO ×3 (08:36→19:57)
[2018-02-12] MEDS: INSULIN ASPART [NOVOLOG] 3 ML PEN SC ×8 (08:46→21:00)
[2018-02-12] MEDS: ENOXAPARIN 40 MG/0.4 ML SYG SC (08:46)
[2018-02-12] MEDS: PREGABALIN 100 MG CAP PO ×3 (10:09→19:57)
[2018-02-12] MEDS ORDERED: VANCOMYCIN IV PER PHARMACY XX (11:00)
[2018-02-12] MEDS: [UNRECOGNIZED DRUG - REMARK] XX (15:21)
[2018-02-12 16:12] LABS: VANCOMYCIN,RANDOM < 5.0 ug/ml
[2018-02-12] MEDS: VANCOMYCIN 1.5 GM in SOD CHLORIDE 0.9% 250 ML IVPB (16:43)
[2018-02-12] MEDS: FLUOXETINE 20 MG CAP PO (19:56)
[2018-02-12] MEDS ORDERED: INSULIN GLARGINE [LANTus] (100 UNITS/ML) SYG SC (20:00)
[2018-02-12] MEDS: INSULIN GLARGINE [LANTus] (100 UNITS/ML) SYG SC ×2 (20:29→20:32)
[2018-02-12 20:41] LABS: GLUCOSE 357 mg/dl (70-220)
[2018-02-12] MEDS: TRIMETHOPRIM/SULFAMETHOX (DS) TAB PO (20:58)
[2018-02-13] MEDS: VANCOMYCIN 1.25 GM in SOD CHLORIDE 0.9% 250 ML IVPB ×3 (01:03→17:19)
[2018-02-13] MEDS: ACCU-CHEK XX (02:00)
[2018-02-13] MEDS: PANTOPRAZOLE (EC) 40 MG TAB PO (05:05)
[2018-02-13 06:37] LABS: ADD MAN DIFF? NO
[2018-02-13 06:44] LABS: BASOPHIL # 0.1 10^3/ul (0.0-0.1); BASOPHILS % 1.1 % (0.0-2.0); EOSINOPHILS # 0.2 10^3/ul (0.0-0.5); EOSINOPHILS % 5.1 % (0.0-7.0); HEMATOCRIT 36.3 % (42.0-52.0); HEMOGLOBIN 12.6 g/dl (14.0-18.0); LYMPHOCYTES # 1.8 10^3/ul (0.8-2.9); LYMPHOCYTES % 38.5 % (15.0-51.0); MEAN CORPUSCULAR HEMOGLOBIN 30.9 pg (29.0-33.0); MEAN CORPUSCULAR HGB CONC 34.7 g/dl (32.0-37.0); MEAN PLATELET VOLUME 9.6 fl (7.4-10.4); MONOCYTE # 0.4 10^3/ul (0.3-0.9); MONOCYTES % 8.5 % (0.0-11.0); NEUTROPHIL # 2.2 10^3/ul (1.6-7.5); NEUTROPHILS % 46.6 % (39.0-77.0); PLATELET COUNT 104 10^3/UL (140-415); RED BLOOD COUNT 4.08 10^6/ul (4.70-6.10); RED CELL DISTRIBUTION WIDTH 12.4 % (11.5-14.5)
[2018-02-13 06:44] LABS: WHITE BLOOD COUNT 4.7 10^3/ul (4.8-10.8)
[2018-02-13 07:10] LABS: ANION GAP 13 (5-13); BLOOD UREA NITROGEN 24 mg/dl (7-20); CALCIUM 9.2 mg/dl (8.4-10.2); CARBON DIOXIDE 24 mmol/L (21-31); CHLORIDE 97 mmol/L (97-110); CREATININE 0.62 mg/dl (0.61-1.24); Estimated GFR > 60 mL/min (>60); POTASSIUM 4.7 mmol/L (3.5-5.1); SODIUM 134 mmol/L (135-144)
[2018-02-13 07:15] LABS: GLUCOSE 420 mg/dl (70-220)
[2018-02-13] MEDS: INSULIN ASPART [NOVOLOG] 3 ML PEN SC ×7 (08:10→20:26)
[2018-02-13] MEDS: INSULIN GLARGINE [LANTus] (100 UNITS/ML) SYG SC ×2 (08:10→20:39)
[2018-02-13] MEDS: ENOXAPARIN 40 MG/0.4 ML SYG SC (08:10)
[2018-02-13] MEDS: TRIMETHOPRIM/SULFAMETHOX (DS) TAB PO ×2 (08:36→20:25)
[2018-02-13] MEDS: PREGABALIN 100 MG CAP PO ×3 (08:37→20:25)
[2018-02-13] MEDS: ASPIRIN 81 MG TAB PO (08:37)
[2018-02-13] MEDS: FLUOXETINE 20 MG CAP PO (08:37)
[2018-02-13] MEDS: GABAPENTIN 300 MG CAP PO ×3 (08:37→20:25)
[2018-02-13] MEDS: SOD CHLORIDE 0.9% 1,000 ML IV (16:09)
[2018-02-13] MEDS: HYDROCODONE/APAP (5/325) TAB PO ×2 (16:19→22:34)
[2018-02-13 16:50] LABS: VANCOMYCIN,TROUGH 15.8 ug/ml (10.0-20.0)
[2018-02-14] MEDS: ACCU-CHEK XX (01:14)
[2018-02-14] MEDS: VANCOMYCIN 1.25 GM in SOD CHLORIDE 0.9% 250 ML IVPB ×3 (01:29→17:10)
[2018-02-14 05:55] LABS: ADD MAN DIFF? NO
[2018-02-14] MEDS: PANTOPRAZOLE (EC) 40 MG TAB PO (05:56)
[2018-02-14] MEDS: HYDROCODONE/APAP (5/325) TAB PO ×3 (05:56→21:13)
[2018-02-14 06:38] LABS: ANION GAP 10 (5-13); BLOOD UREA NITROGEN 17 mg/dl (7-20); CALCIUM 8.8 mg/dl (8.4-10.2); CARBON DIOXIDE 28 mmol/L (21-31); CHLORIDE 102 mmol/L (97-110); CREATININE 0.64 mg/dl (0.61-1.24); Estimated GFR > 60 mL/min (>60); GLUCOSE 178 mg/dl (70-220); POTASSIUM 3.4 mmol/L (3.5-5.1); SODIUM 140 mmol/L (135-144)
[2018-02-14 07:12] LABS: BASOPHILS % 0.6 % (0.0-2.0); EOSINOPHILS # 0.4 10^3/ul (0.0-0.5); EOSINOPHILS % 6.7 % (0.0-7.0); HEMOGLOBIN 12.7 g/dl (14.0-18.0); LYMPHOCYTES # 2.8 10^3/ul (0.8-2.9); LYMPHOCYTES % 53.4 % (15.0-51.0); MEAN CORPUSCULAR HEMOGLOBIN 31.4 pg (29.0-33.0); MEAN CORPUSCULAR HGB CONC 35.3 g/dl (32.0-37.0); MEAN CORPUSCULAR VOLUME 88.9 fl (82.0-101.0); MEAN PLATELET VOLUME 10.1 fl (7.4-10.4); MONOCYTE # 0.4 10^3/ul (0.3-0.9); MONOCYTES % 8.1 % (0.0-11.0); NEUTROPHIL # 1.6 10^3/ul (1.6-7.5); PLATELET COUNT 139 10^3/UL (140-415); RED BLOOD COUNT 4.05 10^6/ul (4.70-6.10); RED CELL DISTRIBUTION WIDTH 12.2 % (11.5-14.5)
[2018-02-14 07:12] LABS: WHITE BLOOD COUNT 5.2 10^3/ul (4.8-10.8)
[2018-02-14] MEDS: INSULIN ASPART [NOVOLOG] 3 ML PEN SC ×7 (07:53→20:17)
[2018-02-14] MEDS: ENOXAPARIN 40 MG/0.4 ML SYG SC (08:00)
[2018-02-14] MEDS: FLUOXETINE 20 MG CAP PO (08:01)
[2018-02-14] MEDS: TRIMETHOPRIM/SULFAMETHOX (DS) TAB PO (08:01)
[2018-02-14] MEDS: PREGABALIN 100 MG CAP PO ×3 (08:02→20:16)
[2018-02-14] MEDS: ASPIRIN 81 MG TAB PO (08:02)
[2018-02-14] MEDS: GABAPENTIN 300 MG CAP PO ×3 (08:02→20:16)
[2018-02-14] MEDS: INSULIN GLARGINE [LANTus] (100 UNITS/ML) SYG SC ×2 (08:57→20:17)
[2018-02-14] MEDS: POTASSIUM CHLORIDE (SR) 20 MEQ TAB PO (14:02)
[2018-02-15] MEDS: VANCOMYCIN 1.25 GM in SOD CHLORIDE 0.9% 250 ML IVPB ×3 (01:40→16:32)
[2018-02-15] MEDS: ACCU-CHEK XX (02:00)
[2018-02-15] MEDS: PANTOPRAZOLE (EC) 40 MG TAB PO (06:01)
[2018-02-15] MEDS: HYDROCODONE/APAP (5/325) TAB PO ×3 (06:02→20:28)
[2018-02-15] MEDS: ASPIRIN 81 MG TAB PO (08:04)
[2018-02-15] MEDS: FLUOXETINE 20 MG CAP PO (08:04)
[2018-02-15] MEDS: GABAPENTIN 300 MG CAP PO ×3 (08:04→20:28)
[2018-02-15] MEDS: PREGABALIN 100 MG CAP PO ×3 (08:04→20:28)
[2018-02-15] MEDS: INSULIN ASPART [NOVOLOG] 3 ML PEN SC ×7 (08:08→20:31)
[2018-02-15] MEDS: ENOXAPARIN 40 MG/0.4 ML SYG SC (08:09)
[2018-02-15] MEDS: INSULIN GLARGINE [LANTus] (100 UNITS/ML) SYG SC ×2 (08:10→20:36)
[2018-02-16] MEDS: VANCOMYCIN 1.25 GM in SOD CHLORIDE 0.9% 250 ML IVPB ×2 (01:08→10:28)
[2018-02-16] MEDS: ACCU-CHEK XX (01:56)
[2018-02-16] MEDS: PANTOPRAZOLE (EC) 40 MG TAB PO (06:18)
[2018-02-16] MEDS: HYDROCODONE/APAP (5/325) TAB PO ×2 (06:19→20:17)
[2018-02-16] MEDS: GABAPENTIN 300 MG CAP PO ×3 (08:08→20:18)
[2018-02-16] MEDS: PREGABALIN 100 MG CAP PO ×3 (08:08→20:17)
[2018-02-16] MEDS: FLUOXETINE 20 MG CAP PO (08:08)
[2018-02-16] MEDS: ASPIRIN 81 MG TAB PO (08:09)
[2018-02-16] MEDS: INSULIN ASPART [NOVOLOG] 3 ML PEN SC ×7 (08:11→21:00)
[2018-02-16] MEDS: INSULIN GLARGINE [LANTus] (100 UNITS/ML) SYG SC ×2 (08:13→20:19)
[2018-02-16] MEDS: ENOXAPARIN 40 MG/0.4 ML SYG SC (08:16)
[2018-02-16 17:01] LABS: VANCOMYCIN,TROUGH 18.6 ug/ml (10.0-20.0)
[2018-02-16] MEDS: VANCOMYCIN 1 GM 250 ML IVPB (20:21)
[2018-02-17] MEDS: ACCU-CHEK XX (02:00)
[2018-02-17] MEDS: VANCOMYCIN 1 GM 250 ML IVPB ×3 (03:43→20:34)
[2018-02-17] MEDS: PANTOPRAZOLE (EC) 40 MG TAB PO (06:14)
[2018-02-17] MEDS: INSULIN ASPART [NOVOLOG] 3 ML PEN SC ×7 (07:53→20:28)
[2018-02-17] MEDS: HYDROCODONE/APAP (5/325) TAB PO ×3 (07:55→23:42)
[2018-02-17] MEDS: PREGABALIN 100 MG CAP PO ×3 (08:19→20:34)
[2018-02-17] MEDS: FLUOXETINE 20 MG CAP PO (08:19)
[2018-02-17] MEDS: GABAPENTIN 300 MG CAP PO ×3 (08:19→20:34)
[2018-02-17] MEDS: ASPIRIN 81 MG TAB PO (08:19)
[2018-02-17] MEDS: INSULIN GLARGINE [LANTus] (100 UNITS/ML) SYG SC ×2 (08:20→20:35)
[2018-02-17] MEDS: ENOXAPARIN 40 MG/0.4 ML SYG SC (08:21)
[2018-02-18] MEDS: ACCU-CHEK XX (01:03)
[2018-02-18] MEDS: VANCOMYCIN 1 GM 250 ML IVPB ×2 (04:00→12:15)
[2018-02-18] MEDS: PANTOPRAZOLE (EC) 40 MG TAB PO (05:58)
[2018-02-18] MEDS: INSULIN ASPART [NOVOLOG] 3 ML PEN SC ×4 (07:59→11:57)
[2018-02-18] MEDS: INSULIN GLARGINE [LANTus] (100 UNITS/ML) SYG SC (08:01)
[2018-02-18] MEDS: ENOXAPARIN 40 MG/0.4 ML SYG SC (08:38)
[2018-02-18] MEDS: ASPIRIN 81 MG TAB PO (08:39)
[2018-02-18] MEDS: GABAPENTIN 300 MG CAP PO ×2 (08:39→12:15)
[2018-02-18] MEDS: PREGABALIN 100 MG CAP PO ×2 (08:39→12:15)
[2018-02-18] MEDS: FLUOXETINE 20 MG CAP PO (08:39)
[2018-02-18] MEDS: HYDROCODONE/APAP (5/325) TAB PO (08:43)
== END 2018-02-18 15:05 | disposition home or self-care (01) | DRG 871 ==
LOC: PP2 02-13 15:26 → TEL 21:12
PROVIDERS: Internal Medicine Nephrology
DX: A41.89 Other specified sepsis (principal); E10.10 Type 1 diabetes mellitus with ketoacidosis without coma; M86.8X7 Other osteomyelitis, ankle and foot; L03.116 Cellulitis of left lower limb; Z59.0 Homelessness; Z91.19 Patient's noncompliance with other medical treatment and regimen; Z86.73 Personal history of transient ischemic attack (TIA), and cerebral infarction without residual deficits; F15.10 Other stimulant abuse, uncomplicated; Z72.0 Tobacco use; B95.62 Methicillin resistant Staphylococcus aureus infection as the cause of diseases classified elsewhere
CPT/HCPCS: 80048; 80053; 80202; 82947; 82962; 85025; 87040

== ENCOUNTER 2018-03-19 18:09 | Inpatient (IN) | payer OTHER ==
[2018-03-19] MEDS ORDERED: D10/0.45% NACL + KCL 30 MEQ 1,000 ML IV (18:10)
[2018-03-19] MEDS ORDERED: NS + KCL 30 MEQ 1,000 ML IV (18:10)
[2018-03-19] MEDS ORDERED: DEXTROSE 10 %/0.45 % NACL 1,000 ML IV (18:10)
[2018-03-19] MEDS ORDERED: D10/0.45% NACL + KCL 40 MEQ 1,000 ML IV (18:10)
[2018-03-19] MEDS ORDERED: SOD CHLORIDE 0.9% 1,000 ML IV (18:10)
[2018-03-19] MEDS ORDERED: NS + KCL 40 MEQ 1,000 ML IV (18:10)
[2018-03-19] MEDS: SOD CHLORIDE 0.9% 700 ML IV (18:18)
[2018-03-19] MEDS: LACTATED RINGER'S 700 ML IV (18:21)
[2018-03-19] MEDS ORDERED: DEXTROSE 50% 50 ML SYRINGE IV ×6 (18:30→22:00)
[2018-03-19 18:34] LABS: MODE ROOM AIR; MetHgb Venous 0.2 %; Sample Type Blood venous; Site VENOUS LINE; Venous COHb 0.9 %; Venous Fraction OxyHgb 91.9 %; Venous Oxygen Sat 92.9 mmHG (55.0-75.0); Venous Total Hemglobin 12.5 g/dl
[2018-03-19 18:50] LABS: HEMOGLOBIN A1C 10.6 % (0-5.9)
[2018-03-19 18:54] LABS: ADD MAN DIFF? NO
[2018-03-19 18:56] LABS: BASOPHIL # 0.1 10^3/ul (0.0-0.1); BASOPHILS % 0.7 % (0.0-2.0); EOSINOPHILS % 0.5 % (0.0-7.0); HEMATOCRIT 35.6 % (42.0-52.0); HEMOGLOBIN 12.1 g/dl (14.0-18.0); LYMPHOCYTES # 1.6 10^3/ul (0.8-2.9); MEAN CORPUSCULAR HEMOGLOBIN 30.9 pg (29.0-33.0); MEAN PLATELET VOLUME 10.8 fl (7.4-10.4); MONOCYTE # 0.5 10^3/ul (0.3-0.9); MONOCYTES % 5.7 % (0.0-11.0); NEUTROPHIL # 6.5 10^3/ul (1.6-7.5); NEUTROPHILS % 74.9 % (39.0-77.0); PLATELET COUNT 279 10^3/UL (140-415); RED BLOOD COUNT 3.91 10^6/ul (4.70-6.10)
[2018-03-19 18:56] LABS: WHITE BLOOD COUNT 8.7 10^3/ul (4.8-10.8)
[2018-03-19 19:02] LABS: ANION GAP 18 (5-13); BLOOD UREA NITROGEN 30 mg/dl (7-20); CARBON DIOXIDE 21 mmol/L (21-31); CHLORIDE 90 mmol/L (97-110); CREATININE 0.84 mg/dl (0.61-1.24); Estimated GFR > 60 mL/min (>60); MAGNESIUM 2.1 mg/dl (1.7-2.5); PHOSPHORUS 4.6 mg/dl (2.5-4.9); POTASSIUM 5.1 mmol/L (3.5-5.1); SODIUM 129 mmol/L (135-144)
[2018-03-19 19:08] LABS: ADD UMIC NO; UR ASCORBIC ACID NEGATIVE (NEGATIVE); UR BILIRUBIN (Dip) NEGATIVE (NEGATIVE); UR BLOOD (Dip) NEGATIVE (NEGATIVE); UR CLARITY CLEAR (CLEAR); UR COLOR COLORLESS (YELLOW); UR GLUCOSE (Dip) 3+ mg/dL (NEGATIVE); UR KETONES (Dip) 1+ mg/dL (NEGATIVE); UR LEUKOCYTE ESTERASE (Dip) NEGATIVE Leu/ul (NEGATIVE); UR NITRITE (Dip) NEGATIVE (NEGATIVE); UR SPECIFIC GRAVITY (Dip) 1.023 (1.003-1.030); UR TOTAL PROTEIN (Dip) NEGATIVE (NEGATIVE); UR UROBILINOGEN (Dip) NEGATIVE (NEGATIVE)
[2018-03-19 19:12] LABS: GLUCOSE 941 mg/dl (70-220)
[2018-03-19] MEDS: INSULIN REGULAR, HUMAN 100 UNIT in SOD CHLORIDE 0.9% 100 ML IV (19:28)
[2018-03-19] MEDS ORDERED: INSULIN HUMAN REGULAR 100 UNIT in SOD CHLORIDE 0.9% 99 ML IV (19:30)
[2018-03-19 20:02] LABS: TROPONIN-I < 0.012 ng/ml (0.000-0.120)
[2018-03-19 21:51] LABS: ANION GAP 12 (5-13); BLOOD UREA NITROGEN 23 mg/dl (7-20); CARBON DIOXIDE 25 mmol/L (21-31); CHLORIDE 100 mmol/L (97-110); CREATININE 0.69 mg/dl (0.61-1.24); Estimated GFR > 60 mL/min (>60); MAGNESIUM 2.3 mg/dl (1.7-2.5); PHOSPHORUS 3.8 mg/dl (2.5-4.9); POTASSIUM 4.2 mmol/L (3.5-5.1); SODIUM 137 mmol/L (135-144)
[2018-03-19] MEDS ORDERED: ACETAMINOPHEN 325 MG TAB PO (22:00)
[2018-03-19] MEDS ORDERED: ONDANSETRON 4 MG INJ IV (22:00)
[2018-03-19] MEDS ORDERED: NACL 0.9% 3 ML SYG IV (22:00)
[2018-03-19] MEDS ORDERED: DOCUSATE SODIUM 100 MG CAP PO (22:00)
[2018-03-19] MEDS: ACCU-CHEK XX ×2 (22:00→23:53)
[2018-03-19] MEDS ORDERED: LORAZEPAM 2 MG INJ IV (22:00)
[2018-03-19 22:04] LABS: GLUCOSE 456 mg/dl (70-220)
[2018-03-19] MEDS: SOD CHLORIDE 0.9% 1,000 ML IV ×2 (22:48→23:42)
[2018-03-19 23:15] LABS: BENZODIAZEPINES Negative (NEGATIVE); CANNABINOIDS Negative (NEGATIVE); COCAINE Negative (NEGATIVE); OPIATES Negative (NEGATIVE)
[2018-03-19 23:17] LABS: BARBITURATES Negative (NEGATIVE)
[2018-03-19] MEDS: INSULIN HUMAN REGULAR 100 UNIT in SOD CHLORIDE 0.9% 99 ML IV (23:49)
[2018-03-19 23:53] LABS: AMPHETAMINE/METHAMPHETAMINE Positive (NEGATIVE)
[2018-03-20] MEDS: ACCU-CHEK XX ×14 (01:43→13:00)
[2018-03-20 05:29] LABS: ADD MAN DIFF? NO
[2018-03-20 05:31] LABS: BASOPHIL # 0.1 10^3/ul (0.0-0.1); EOSINOPHILS # 0.2 10^3/ul (0.0-0.5); EOSINOPHILS % 2.4 % (0.0-7.0); HEMATOCRIT 35.4 % (42.0-52.0); HEMOGLOBIN 12.1 g/dl (14.0-18.0); LYMPHOCYTES # 2.8 10^3/ul (0.8-2.9); LYMPHOCYTES % 40.5 % (15.0-51.0); MEAN CORPUSCULAR HEMOGLOBIN 30.8 pg (29.0-33.0); MEAN CORPUSCULAR HGB CONC 34.2 g/dl (32.0-37.0); MEAN CORPUSCULAR VOLUME 90.1 fl (82.0-101.0); MEAN PLATELET VOLUME 9.7 fl (7.4-10.4); MONOCYTE # 0.6 10^3/ul (0.3-0.9); MONOCYTES % 8.2 % (0.0-11.0); NEUTROPHIL # 3.2 10^3/ul (1.6-7.5); NEUTROPHILS % 47.8 % (39.0-77.0); PLATELET COUNT 264 10^3/UL (140-415); RED BLOOD COUNT 3.93 10^6/ul (4.70-6.10); RED CELL DISTRIBUTION WIDTH 13.1 % (11.5-14.5)
[2018-03-20 05:31] LABS: WHITE BLOOD COUNT 6.8 10^3/ul (4.8-10.8)
[2018-03-20 05:57] LABS: ALANINE AMINOTRANSFERASE 35 IU/L (13-69); ALBUMIN 3.4 g/dl (3.3-4.9); ALBUMIN/GLOBULIN RATIO 1.13; ALKALINE PHOSPHATASE 85 IU/L (42-121); ANION GAP 10 (5-13); ASPARTATE AMINO TRANSFERASE 20 IU/L (15-46); BILIRUBIN,INDIRECT 0.8 mg/dl (0-1.1); BILIRUBIN,TOTAL 0.8 mg/dl (0.2-1.3); BLOOD UREA NITROGEN 16 mg/dl (7-20); CALCIUM 8.6 mg/dl (8.4-10.2); CARBON DIOXIDE 26 mmol/L (21-31); CHLORIDE 106 mmol/L (97-110); CREATININE 0.61 mg/dl (0.61-1.24); Estimated GFR > 60 mL/min (>60); GLUCOSE 94 mg/dl (70-220); MAGNESIUM 2.1 mg/dl (1.7-2.5); PHOSPHORUS 3.7 mg/dl (2.5-4.9); POTASSIUM 3.9 mmol/L (3.5-5.1); SODIUM 142 mmol/L (135-144); TOTAL PROTEIN 6.4 g/dl (6.1-8.1)
[2018-03-20] MEDS: PANTOPRAZOLE 40 MG INJ IV (06:01)
[2018-03-20] MEDS: SOD CHLORIDE 0.9% 1,000 ML IV ×2 (07:57→15:52)
[2018-03-20] MEDS: INSULIN GLARGINE [LANTus] (100 UNITS/ML) SYG SC ×3 (13:55→22:31)
[2018-03-20] MEDS: ENOXAPARIN 40 MG/0.4 ML SYG SC (14:30)
[2018-03-20] MEDS: INSULIN ASPART [NOVOLOG] 3 ML PEN SC ×3 (17:26→22:04)
[2018-03-20 21:59] LABS: GLUCOSE 433 mg/dl (70-220)
[2018-03-20] MEDS ORDERED: DEXTROSE 50% 50 ML SYRINGE IV ×2 (22:00)
[2018-03-20] MEDS ORDERED: GLUCOSE GEL 15 GRAM TUBE PO ×2 (22:00)
[2018-03-20] MEDS ORDERED: GLUCAGON 1 MG INJ IM (22:00)
[2018-03-20] MEDS ORDERED: GLUCOSE GEL 15 GRAM TUBE BUCCAL (22:00)
[2018-03-21] MEDS: SOD CHLORIDE 0.9% 1,000 ML IV ×2 (04:45→05:24)
[2018-03-21 05:18] LABS: ADD MAN DIFF? NO
[2018-03-21] MEDS: PANTOPRAZOLE 40 MG INJ IV (05:24)
[2018-03-21 05:29] LABS: BASOPHIL # 0.1 10^3/ul (0.0-0.1); BASOPHILS % 0.9 % (0.0-2.0); EOSINOPHILS # 0.2 10^3/ul (0.0-0.5); EOSINOPHILS % 2.2 % (0.0-7.0); HEMATOCRIT 36.7 % (42.0-52.0); HEMOGLOBIN 12.4 g/dl (14.0-18.0); LYMPHOCYTES # 2.5 10^3/ul (0.8-2.9); LYMPHOCYTES % 30.9 % (15.0-51.0); MEAN CORPUSCULAR HGB CONC 33.8 g/dl (32.0-37.0); MEAN CORPUSCULAR VOLUME 91.8 fl (82.0-101.0); MEAN PLATELET VOLUME 9.9 fl (7.4-10.4); MONOCYTE # 0.4 10^3/ul (0.3-0.9); MONOCYTES % 5.2 % (0.0-11.0); NEUTROPHIL # 4.9 10^3/ul (1.6-7.5); NEUTROPHILS % 60.7 % (39.0-77.0); PLATELET COUNT 250 10^3/UL (140-415); RED CELL DISTRIBUTION WIDTH 13.1 % (11.5-14.5)
[2018-03-21 05:29] LABS: WHITE BLOOD COUNT 8.1 10^3/ul (4.8-10.8)
[2018-03-21 05:53] LABS: ANION GAP 13 (5-13); BLOOD UREA NITROGEN 13 mg/dl (7-20); CALCIUM 8.6 mg/dl (8.4-10.2); CARBON DIOXIDE 27 mmol/L (21-31); CHLORIDE 99 mmol/L (97-110); CREATININE 0.58 mg/dl (0.61-1.24); Estimated GFR > 60 mL/min (>60); GLUCOSE 335 mg/dl (70-220); SODIUM 139 mmol/L (135-144)
[2018-03-21] MEDS: INSULIN GLARGINE [LANTus] (100 UNITS/ML) SYG SC (08:43)
[2018-03-21] MEDS: INSULIN ASPART [NOVOLOG] 3 ML PEN SC ×4 (08:43→17:46)
[2018-03-21] MEDS: ENOXAPARIN 40 MG/0.4 ML SYG SC (09:00)
[2018-03-21] MEDS ORDERED: MUPIROCIN 2% 22 GM OINT TOP (21:00)
[2018-03-21] MEDS ORDERED: GABAPENTIN 300 MG CAP PO (21:00)
[2018-03-21] MEDS ORDERED: INSULIN GLARGINE [LANTus] (100 UNITS/ML) SYG SC (21:00)
[2018-03-22] MEDS ORDERED: PANTOPRAZOLE (EC) 40 MG TAB PO (06:00)
[2018-03-22] MEDS ORDERED: FLUOXETINE 20 MG CAP PO (09:00)
[2018-03-22] MEDS ORDERED: ASPIRIN (EC) 81 MG TAB PO (09:00)
[2018-03-23] MEDS ORDERED: INFLUENZA VIRUS VACCINE 0.5 ML (DISPENSING) IM* (09:00)
== END 2018-03-21 19:07 | disposition left against medical advice (07) | DRG 638 ==
LOC: E/R 18:09 → ICU 19:52
PROVIDERS: Internal Medicine Nephrology
DX: E10.10 Type 1 diabetes mellitus with ketoacidosis without coma (principal); E87.1 Hypo-osmolality and hyponatremia; Z91.19 Patient's noncompliance with other medical treatment and regimen; Z59.0 Homelessness; I10 Essential (primary) hypertension; Z86.73 Personal history of transient ischemic attack (TIA), and cerebral infarction without residual deficits; Z89.422 Acquired absence of other left toe(s); R41.82 Altered mental status, unspecified; F32.9 Major depressive disorder, single episode, unspecified
CPT/HCPCS: 36415; 80048; 80053; 80307; 81003; 82803; 82947; 82962; 83036; 83605; 83735; 84100; 84484; 85025; 87081; 96361; 96374; 99291-25